=== PATIENT | male | born 1960 | race Caucasian/White ===

== ENCOUNTER 2018-12-04 19:39 | Emergency (ER) | payer MEDICARE ==
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
[2018-12-04 20:28] LABS: CHLORIDE,CL 101 mmol/L (98-107); SODIUM,NA 140 mmol/L (136-145)
[2018-12-04 20:33] LABS: ANION GAP 23.5 mmol/L (10-20)
[2018-12-04 20:50] LABS: ACETAMINOPHEN 0 ug/ml (10-30)
== END 2018-12-04 20:43 ==
LOC: SUPCPDRO 19:39 → VM.ED 19:39
DX: S01.312A Laceration without foreign body of left ear, initial encounter (principal); F10.120 Alcohol abuse with intoxication, uncomplicated; F11.90 Opioid use, unspecified, uncomplicated; Y04.8XXA Assault by other bodily force, initial encounter
CPT/HCPCS: 12011; 36415; 80053; 80305-QW; 81003; 85025; 93005; 99284; G0480